=== PATIENT | male | born 1965 | race American Indian/Alaskan Native ===

== ENCOUNTER 2018-09-24 07:25 | Outpatient (CLI) | payer OTHER ==
[2018-09-24 08:58] LABS: Hematocrit 41.2 % (35.5-45.6); Hemoglobin 13.9 gm/dl (11.8-15.2); Mean Corpuscular HGB Conc 34 % (32-34); Mean Corpuscular Volume 85 fl (84-94); Platelet Count 277 K/mm3 (140-440); Red Blood Count 4.87 M/mm3 (3.65-5.03); Red Cell Distribution Width 14.4 % (13.2-15.2)
[2018-09-24 09:15] LABS: Alanine Aminotransferase 15 units/L (7-56); Albumin 4.2 g/dL (3.9-5); BUN/Creatinine Ratio 19; Blood Urea Nitrogen 17 mg/dL (9-20); Calcium 9.2 mg/dL (8.4-10.2); Chol/HDL Ratio 3.68 %; HDL Cholesterol 47 mg/dL (40-59); Hemolysis Index 5; LDL Cholesterol,Direct 129 mg/dL (50-130)
--- NOTE | 2018-09-24 09:46 | XRay Report ---
CHEST 2 VIEWS INDICATION: CHEMICAL EXPOSURE. COMPARISON: None FINDINGS: Support devices: None. Heart: Within normal limits. Lungs/pleura: No acute air space or interstitial disease. No pneumothorax. Additional findings: None. IMPRESSION: No acute findings. Signer Name: Negro Aguirre Jr, MD Signed: 09/24/2018 9:42 AM Workstation Name: [id number]
--- NOTE | 2018-09-28 05:08 | Pulmonary Function Test ---
SPIROMETRY: FVC 3.30 liters, which is 81% of predicted. FEV1 is 2.85 liters, which is 88% of predicted. FEV1/FVC is 86. Flow volume loop 3.62 liters per second, which is 114% of the predicted and MVV is 72% of the predicted. LUNG VOLUMES: TLC 5.19, which is 75% of the predicted. Slow vital capacity SVC 3.12, which is 72% of the predicted and RV is 2.06 liters, which is 99% of the predicted and the patient's DLCO is 83% of the predicted. IMPRESSION: Very mild restrictive ventilatory impairment as evidenced by decrease in TLC. JOB# [id number] LEONORA/SHERON
== END 2018-09-24 07:26 | disposition home or self-care (01) ==
LOC: PF 07:25
PROVIDERS: ATTEND Internal Medicine
DX: J98.4 Other disorders of lung (principal); Z57.5 Occupational exposure to toxic agents in other industries
CPT/HCPCS: 36415; 36600; 71046; 80053; 80061; 82803; 84436; 84443; 85027; 94010; 94726; 94729